=== PATIENT | female | born 1995 | race Caucasian/White ===

== ENCOUNTER 2017-04-21 12:43 | Day surgery (SDC) | payer OTHER ==
[~2017-04-21] VITALS: Ht 167.6 cm; Wt 54.4 kg
[~2017-04-21 12:43] MED LIST: LEVO500T47 PO
[2017-04-21] MEDS ORDERED: ONDANSETRON 2MG/ML, 2ML ONE ×2 (13:14→17:28)
[2017-04-21 13:19] LABS: BASOPHILS # (AUTO) 0.02 x10^3/uL (0-0.1); BASOPHILS % (AUTO) 0 % (0-1); EOSINOPHILS # (AUTO) 0.01 x10^3/uL (0-0.4); EOSINOPHILS % (AUTO) 0 % (1-7); LYMPHOCYTES # (AUTO) 1.48 x10^3/uL (1-3.4); LYMPHOCYTES % (AUTO) 13 % (22-44); MD NO; MEAN CORPUSCULAR HEMOGLOBIN 31.4 pg (27.0-34.8); MEAN CORPUSCULAR HGB CONC 33.7 g/dL (32.4-35.8); MEAN CORPUSCULAR VOLUME 93.3 fL (80-100); MEAN PLATELET VOLUME 7.8 fL (7.4-10.4); MONOCYTES # (AUTO) 0.75 x10^3/uL (0.2-0.8); MONOCYTES % (AUTO) 7 % (2-9); NEUTROPHILS # (AUTO) 8.99 x10^3/uL (1.8-6.8); NEUTROPHILS % (AUTO) 80 % (42-75); PLATELET COUNT 266 x10^3/uL (130-400); RED CELL DISTRIBUTION WIDTH 13.4 % (9.6-15.2)
[2017-04-21 13:30] LABS: ALBUMIN 3.8 g/dL (3.4-5.0); ANION GAP 8 mmol/L (5-15); CALCIUM 8.8 mg/dL (8.5-10.1); CHLORIDE 105 mmol/L (98-107)
[2017-04-21] MEDS ORDERED: SODIUM CHLORIDE 0.9% 1,000ML IVBOLUS ONE (13:30)
[2017-04-21] MEDS ORDERED: ONDANSETRON 2MG/ML, 2ML IVPush ONE (13:30)
[2017-04-21] MEDS ORDERED: SODIUM CHLORIDE FLUSH 10ML SYR IVF ONE (13:30)
[2017-04-21 13:34] LABS: ALANINE AMINOTRANSFERASE 27 U/L (12-78); ALKALINE PHOSPHATASE 58 U/L (45-117); BILIRUBIN,TOTAL 0.6 mg/dL (0.2-1.0); CREATININE 0.77 mg/dL (0.55-1.02); TOTAL PROTEIN 8.2 g/dL (6.4-8.2)
[2017-04-21] MEDS ORDERED: KETOROLAC 30 MG/1 ML ONE ×2 (13:45→17:28)
[2017-04-21] MEDS ORDERED: KETOROLAC 30 MG/1 ML IVPush ONE (14:00)
[2017-04-21 14:51] LABS: MICROSCOPIC AUTO
[2017-04-21 14:58] LABS: CULTURE INDICATED? YES
[2017-04-21] MEDS ORDERED: CEFOTETAN PMX 1GM/50ML 50 ML IV ONE (15:00)
[2017-04-21] MEDS ORDERED: CEFOTETAN PMX 1GM/50ML 50 ML ONE (15:04)
[2017-04-21] MEDS ORDERED: BUPIVACAINE/PF 0.5% ONE (17:15)
[2017-04-21] MEDS ORDERED: EPINEPHRINE 1 MG/ML, 1ML ONE (17:15)
[2017-04-21] MEDS ORDERED: NEOSTIGMINE 1 MG/ML, 10ML ONE (17:28)
[2017-04-21] MEDS ORDERED: ROCURONIUM 10 MG/ML,10ML ONE (17:28)
[2017-04-21] MEDS ORDERED: PROPOFOL 10 MG/ML, 20ML ONE (17:28)
[2017-04-21] MEDS ORDERED: FENTANYL PF 250 MCG/5ML ONE (17:28)
[2017-04-21] MEDS ORDERED: GLYCOPYRROLATE 0.2MG/1ML, 5ML ONE (17:28)
[2017-04-21] MEDS ORDERED: CEFOTETAN 1 GM ONE (17:28)
[2017-04-21] MEDS ORDERED: SUCCINYLCHOLINE 20 MG/ML, 10ML ONE (17:28)
[2017-04-21] MEDS ORDERED: DEXAMETHASONE 4 MG/ML, 1ML ONE (17:28)
[2017-04-21] MEDS ORDERED: LABETALOL 5MG/ML, 20ML IV PRN (17:30)
[2017-04-21] MEDS ORDERED: PROMETHAZINE 12.5 MG SUPP PR PRN (17:30)
[2017-04-21] MEDS ORDERED: PROMETHAZINE 25 MG/ML, 1ML IV PRN (17:30)
[2017-04-21] MEDS ORDERED: HYDROmorphone 1 MG/ML, 1ML IV PRN (17:30)
[2017-04-21] MEDS ORDERED: ACETAMINOPHEN 325 MG TABLET PO PRN (17:30)
[2017-04-21] MEDS ORDERED: ONDANSETRON 2MG/ML, 2ML IVPush PRN (17:30)
[2017-04-21] MEDS ORDERED: morphine SULFATE 10 MG/ML, 1ML IV PRN (17:30)
[2017-04-21] MEDS ORDERED: hydrALAzine 20 MG/ML, 1ML IV PRN (17:30)
[2017-04-21] MEDS ORDERED: FENTANYL PF 100 MCG/2ML IV PRN (17:30)
[2017-04-21] MEDS ORDERED: OXYcodone 5 MG/5 ML ORAL.SOL UDC PO PRN (17:30)
[2017-04-21] MEDS ORDERED: MEPERIDINE/PF 25MG/0.5ML IVPush PRN (17:30)
[2017-04-21] MEDS ORDERED: BUPIVACAINE/PF-EPI 0.5% 1:200K IM ONE (17:43)
[2017-04-21] MEDS ORDERED: ACETAMINOPHEN 650 MG/20.3 ML UDC ONE (18:28)
[2017-04-21] MEDS ORDERED: OXYcodone 5 MG/5 ML ORAL.SOL UDC ONE (18:28)
[2017-04-21 19:50] VITALS: BP 126/85
[2017-04-21] MEDS ORDERED: OXYcodone/APAP 5/325MG TABLET PO PRN (20:00)
[2017-04-21] MEDS ORDERED: OXYC-302 PO (20:37)
[2017-04-21] MEDS ORDERED: POLY17PO5 PO (20:40)
== END 2017-04-21 21:30 | disposition home or self-care (01) ==
LOC: OR 15:32 → UNDOADMIN 15:33 → EDIP 15:33 → OR 15:33 → 4NOR 19:35 → EDIP 19:35 → OR 21:30 → UNDODISIN 21:30
PROVIDERS: ATTEND Colon & Rectal Surgery
DX: K37 Unspecified appendicitis (principal)
CPT/HCPCS: 36415; 44970; 76856; 80053; 81001; 84703; 85025; 87086; 87147; 88304; 96374; 96375; 99285; J0171; J0330; J1100; J1885; J2405; J2704; J2710; J3010; J3490; J7030; S0074